=== PATIENT | female | born 1960 | race Caucasian/White ===

== ENCOUNTER → 2021-04-05 09:23 | Outpatient (BNVA) | payer BC, SELFPAY | PROVIDERS: Family Provider Family Medicine; Visit Provider Nurse Practitioner Family | DX: F41.9 Anxiety disorder, unspecified (principal); K21.9 Gastro-esophageal reflux disease without esophagitis; E55.9 Vitamin D deficiency, unspecified; M19.90 Unspecified osteoarthritis, unspecified site; Z78.0 Asymptomatic menopausal state; R05.9 Cough, unspecified; J32.0 Chronic maxillary sinusitis; Z13.820 Encounter for screening for osteoporosis | CPT/HCPCS: 80053; 80061; 82306; 84443 ==

== ENCOUNTER 2023-04-13 22:26 | Emergency (ER) | payer SELFPAY ==
[2023-04-13 22:35] VITALS: BP 155/70; PULSE 81; RESP 18; TEMP 37.2; O2SAT 99; BMI 19.2
--- NOTE | 2023-04-13 22:40 | XRR_ITS ---
PROCEDURE INFORMATION: Exam: XR Left Foot Exam date and time: 04/13/2023 10:55 PM Age: 62 years old Clinical indication: Injury or trauma; Other: Object fell on left foot; Swelling (edema) TECHNIQUE: Imaging protocol: Radiologic exam of the left foot. Views: 3 or more views. COMPARISON: No relevant prior studies available. FINDINGS: Bones/joints: Normal. Soft tissues: Normal. XR/XR foot LT min 3V* [id number] IMPRESSION: No acute findings.
--- NOTE | 2023-04-13 23:56 | ED_ITS ---
HPI - Extremity Problem General: Chief complaint: Extremity Injury, Lower Stated complaint: L foot injury Time Seen by Provider: 04/13/23 23:35 History of Present Illness: Patient is a 62-year-old female who presents to the emergency department for evaluation of a left foot injury. Patient reports that earlier this evening she dropped a mirror on the dorsal aspect of her left foot. Patient states that since the incident she has had increased left foot pain. She currently rates her pain as a 10 out of 10 in severity that she describes as a sharp/stabbing sensation. Patient is unable to bear weight on her left foot secondary to the pain. Denies any numbness or tingling in the ipsilateral extremity. Admits to full range of motion of the left foot and toes, however, this does exacerbate her pain. No other complaints at this time. Associated symptoms: Deny chest pain, fever(s) or rash Review of Systems General: Reports: 10 or more systems reviewed and unremarkable except in HPI and below Const: Denies: fever(s) or chills Eyes: Denies: change in vision or blurry vision ENMT: Denies: throat pain, ear or mastoid pain, ear discharge, nasal discharge or nasal congestion Card: Denies: chest pain or palpitations Resp: Denies: dyspnea, productive cough, non-productive cough or wheezing GI: Denies: abdominal pain, nausea, vomiting, diarrhea or constipation : Denies: dysuria or hematuria Musc: Denies: neck pain or back pain Skin/Breast: Denies: rash Neuro: Denies: headache(s), dizziness or vertigo PFS ED PFSH: Social History Smoking and tobacco/nicotine status: current every day tobacco/nicotine user Physical Exam Const: COMMON NORMALS: no acute distress, patient oriented x3 and alert HENMT: COMMON NORMALS: normocephalic, atraumatic and Normal external nose present HEAD & SCALP: normocephalic and atraumatic NOSE: Normal external nose present Eye: COMMON NORMALS: EOMs intact bilaterally, conjunctivae normal and no scleral icterus CONJUNCTIVA: Yes conjunctivae normal Neck/C-Spine: COMMON NORMALS: full ROM Chest: COMMONS NORMALS: normal inspection of the chest Resp: COMMON NORMALS: normal respiratory effort, No retractions and No use of accessory muscles Cardio: COMMON NORMALS: regular rate and Peripheral pulses 2+ throughout (2+ dorsalis pedis pulses bilaterally.) RATE: regular rate PERIPHERAL PULSES: Peripheral pulses 2+ throughout (2+ dorsalis pedis pulses bilaterally.) Extremity: OTHER: Tenderness appreciated to the dorsal aspect of the left foot. No appreciable swelling, erythema, or ecchymosis appreciated to the affected area. Patient has full passive and active range of motion in the left ankle, foot, and toes. No bony abnormalities or protuberances noted. Moving all other bilateral upper and lower extremities without weakness or deficit. Neuro: COMMON NORMALS: patient oriented x3 SENSORIUM/ORIENTATION: Yes alert OTHER: Sensation intact in the bilateral upper and lower extremities. No focal neurological deficits noted on examination. Course Vital Signs: Vital signs: Vital Signs Temperature 98.9 F 04/13/23 22:35 Pulse Rate 81 04/13/23 22:35 Respiratory Rate 18 04/13/23 22:35 Blood Pressure 155/70 04/13/23 22:35 Pulse Oximetry 99 04/13/23 22:35 Oxygen Delivery Me thod Room Air 04/13/23 22:35 MDM - Extremity (Nontraumatic) Medical Decision Making Patient is a 62-year-old female who presents to the emergency department for evaluation of a left foot injury. On physical examination patient is nontoxic and in no acute distress. Vital signs remained stable throughout the ED course. Patient is neurovascularly intact. X-ray of the left foot showed no acute fracture or dislocation. Based off history and physical examination I do not believe the patient symptoms are emergent and warrant further emergent evaluation at this time. Patient was given Toradol in the emergency department for symptomatic relief. Patient stated improvement of symptoms after medication administration. Patient was instructed over RICE therapy. Call your primary care provider tomorrow with an update of your symptoms and schedule appointment for further management/evaluation. You may need further imaging if your symptoms persist. Return to the emergency department for any rapid or worsening symptoms or as needed. Patient stated understanding of all discharge instructions was agreeable to plan of care. Differential diagnosis includes but is not limited to fracture, dislocation, contusion, sprain Lab Data Radiology Impressions Foot X-Ray 04/13/23 22:40 IMPRESSION: No acute findings. All radiology interpretation(s) finalized by discharge Discharge Plan Discharge Patient Disposition: Home Clinical Impression: Contusion of foot, left Condition: Stable Prescriptions: No Action conjugated estrogens PO DAILY celecoxib [Celebrex] 200 mg capsule 200 mg PO BID Qty: 180 1RF omeprazole 20 mg capsule,delayed release(DR/EC) 20 mg PO DAILY Qty: 90 1RF cholecalciferol (vitamin D3) 50 mcg (2,000 unit) capsule 50 mcg PO DAILY 90 Days Qty: 90 1RF gabapentin 100 mg capsule 100 mg PO .HS Qty: 90 1RF estradiol 1 mg tablet 1 mg PO DAILY Qty: 30 2RF alprazolam 0.25 mg tablet 0.25 mg PO TID PRN (Reason: anxiety) Qty: 90 0RF Discharge Orders: Discharge ED (Routine); Ordered 04/14/23 Ordered By: Luis Painter Referrals: Vicente Pal DO [Family Provider] - Enmanuel Rizvi PA [Primary Care Provider] - Patient Instructions: Contusion Activity Restrictions/Additional Instructions: As discussed in room no fracture or dislocation was noted on your x-ray. Increase oral hydration. Tylenol and ibuprofen as needed for pain. See handout over generalized instructions. Ice can be placed over the affected area 15 to 20 minutes 5-6 times a day. Elevation of your left foot can reduce swelling and also alleviate your symptoms. Call your primary care provider tomorrow with an update of your symptoms and to schedule appointment for further management/evaluation. You may need further imaging if your symptoms persist. Return to the emergency department for any rapid or worsening symptoms or as needed. 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
[2023-04-14] MEDS: ketorolac 30 mg/mL INJ 15 MG IM (00:25)
[2023-04-14 00:46] VITALS: PULSE 78; RESP 16; O2SAT 96
== END 2023-04-14 00:44 | disposition home or self-care (01) ==
PROVIDERS: Emergency Provider Physician Assistant; PCP Physician Assistant Medical
DX: S90.32XA Contusion of left foot, initial encounter (principal); Z72.0 Tobacco use; W20.8XXA Other cause of strike by thrown, projected or falling object, initial encounter
CPT/HCPCS: 73630; 96372; 99284; J1885

== ENCOUNTER 2025-03-05 09:30 | Outpatient (CLI) | payer OTHER, SELFPAY ==
--- NOTE | 2025-03-05 09:40 | MM_ITS ---
WS: [id number] BILATERAL SCREENING DIGITAL TOMOSYNTHESIS MAMMOGRAM WITH CAD HISTORY: SCREENING COMPARISON: 12/23/2013 Bilateral CC and MLO views with tomosynthesis and synthetic mammography submitted. Computer aided detection analyzed. Breast composition: The breasts are heterogeneously dense, which may obscure small masses. No suspicious masses, microcalcifications or architectural distortion. Benign calcifications. MM/MM scr BI tomosynthesis [id number] IMPRESSION: BI-RADS: 2 - Benign FOLLOW UP: 1 Year Follow-up
== END 2025-03-05 09:31 | disposition home or self-care (01) ==
LOC: MOBLMAM 09:32
PROVIDERS: PCP Family Medicine; Visit Provider Family Medicine
DX: Z12.31 Encounter for screening mammogram for malignant neoplasm of breast (principal); R92.333 Mammographic heterogeneous density, bilateral breasts; R92.1 Mammographic calcification found on diagnostic imaging of breast
CPT/HCPCS: 77063; 77067

== ENCOUNTER 2025-03-20 10:04 | Outpatient (CLI) | payer OTHER, SELFPAY ==
--- NOTE | 2025-03-20 10:17 | CT_ITS ---
WS: [id number] LDCT LUNG CANCER SCREENING TECHNIQUE: Noncontrast CT of the chest with coronal and sagittal reformatted images. CLINICAL INFORMATION: NICOTINE DEPENDENCE, CIGARETTES COMPARISON: None. DLP: 43.11 mGy.cm DIvol: Mean CTDIvol: 0.70 (mGy) All CT scans at [facility] use at least one of these dose optimization techniques: automated exposure control; mA and/or kV adjustment per patient size (includes targeted exams where dose is matched to clinical indication); or iterative reconstruction. FINDINGS: Mild chronic emphysematous changes. Subsegmental atelectasis in the lower lobes. No suspicious pulmonary parenchymal abnormalities. 3 mm noncalcified nodule RIGHT lung apex Normal caliber thoracic aorta. Aortic calcification. No mediastinal or hilar lymphadenopathy. Tiny RIGHT hepatic cyst. No axillary lymphadenopathy. CT/CT lung screening [id number] IMPRESSION: LUNG-RADS: 2-Benign Appearance or Behavior FOLLOW UP: 12 Month: Continue annual screening with LDCT
== END 2025-03-20 10:05 | disposition home or self-care (01) ==
LOC: RAD 10:07
PROVIDERS: PCP Family Medicine; Visit Provider Nurse Practitioner Family
DX: J43.9 Emphysema, unspecified (principal); J98.11 Atelectasis; R91.8 Other nonspecific abnormal finding of lung field; Z12.2 Encounter for screening for malignant neoplasm of respiratory organs
CPT/HCPCS: 71271